=== PATIENT | male | born 1970 | race Caucasian/White ===

== ENCOUNTER 2016-11-07 19:10 | Emergency (ER) | payer OTHER ==
[2016-11-07 20:03] VITALS: BP 172/96
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
== END 2016-11-07 20:31 | disposition home or self-care (01) ==
LOC: JP.ED 19:10
DX: S05.02XA Injury of conjunctiva and corneal abrasion without foreign body, left eye, initial encounter (principal); W22.8XXA Striking against or struck by other objects, initial encounter
CPT/HCPCS: 99283